=== PATIENT | female | born 1975 | race Caucasian/White ===

== ENCOUNTER 2019-05-30 12:46 | Day surgery (SDC) | payer OTHER ==
[2019-05-29 13:10] VITALS: BMI 24.8
--- NOTE | 2019-05-30 14:37 | HP ---
Admitting History and Physical - Admission Chief Complaint: Prolonged menses History of Present Illness: 43 yo Para 2 with 2 prior c-sections is pre op for endometrial ablation due to menorrhagia. History Source: Patient Limitations to Obtaining History: No Limitations - Past Medical History ...LMP: 05/07/19 ...: No ...Para: 2 - Past Surgical History Past Surgical History: Yes: - Smoking History Smoking history: Never smoked - Alcohol/Substance Use Hx Alcohol Use: No History of Substance Use: reports: None - Social History History of Recent Travel: No Home Medications - Allergies Allergies/Adverse Reactions: Allergies Allergy/AdvReac Type Severity Reaction Status Date / Time No Known Allergies Allergy Verified 05/29/19 13:05 - Home Medications Home Medications: Ambulatory Orders Amlodipine Besylate 1 tab PO DAILY 05/30/19 Losartan Potassium 1 tab PO DAILY 05/30/19 Metformin HCl [Metformin HCl ER] 1 tab PO DAILY 05/30/19 Simvastatin [Zocor -] 1 tab PO PRN 05/30/19 Review of Systems - Review of Systems Constitutional: reports: No Symptoms Eyes: reports: No Symptoms HENT: reports: No Symptoms Neck: reports: No Symptoms Cardiovascular: reports: No Symptoms Respiratory: reports: No Symptoms Gastrointestinal: reports: No Symptoms Genitourinary: reports: Vaginal Bleeding Breasts: reports: No Symptoms Reported Musculoskeletal: reports: No Symptoms Integumentary: reports: No Symptoms Neurological: reports: No Symptoms Endocrine: reports: No Symptoms Hematology/Lymphatic: reports: No Symptoms Psychiatric: reports: No Symptoms Pain Intensity: 0 Physical Examination Vital Signs: Vital Signs Temperature 98.3 F 05/30/19 13:23 Pulse Rate 93 H 05/30/19 13:23 Respiratory Rate 18 05/30/19 13:23 Blood Pressure 141/76 05/30/19 13:23 O2 Sat by Pulse Oximetry (%) 100 05/30/19 13:23 Constitutional: Yes: Well Nourished Eyes: Yes: Conjunctiva Clear HENT: Yes: Atraumatic Neck: Yes: Supple Cardiovascular: Yes: Regular Rate and Rhythm Respiratory: Yes: Regular Gastrointestinal: Yes: Normal Bowel Sounds Breast(s): Yes: WNL Musculoskeletal: Yes: WNL Extremities: Yes: WNL Neurological: Yes: Alert, Oriented ...Motor Strength: WNL Psychiatric: Yes: Alert, Oriented Problem List - Problems (1) Menorrhagia Code(s): N92.0 - EXCESSIVE AND FREQUENT MENSTRUATION WITH REGULAR CYCLE Qualifiers: Menorrahagia type: with regular cycle Qualified Code(s): N92.0 - Excessive and frequent menstruation with regular cycle Assessment/Plan Menorrhagia Pre op for endometrial ablation Consent signed Anesthesia to see patient
[2019-05-30] MEDS ORDERED: MIDAZOLAM HCL 2 MG/2 ML SINGLE DOSE VIAL ONE (14:46)
[2019-05-30] MEDS ORDERED: PROPOFOL 20 ML ONE ×2 (14:46→15:16)
[2019-05-30] MEDS ORDERED: oxyCODONE HCL 5 MG TABLET PO PRN (14:57)
[2019-05-30] MEDS ORDERED: ONDANSETRON 4 MG/2 ML VIAL IVPUSH PRN (14:57)
[2019-05-30] MEDS ORDERED: LACTATED RINGERS SOLUTION 1,000 ML IV SCH (15:00)
--- NOTE | 2019-05-30 16:06 | OP ---
Operative Note - Note: Operative Date: 05/30/19 Pre-Operative Diagnosis: Menorrhagia Operation: Hysteroscopic endometrial ablation Findings: Large submucosal fibroid Post-Operative Diagnosis: Same as Pre-op Surgeon: Isabel Vang Anesthesia: General
[2019-05-30] MEDS ORDERED: IBUPROFEN 600 MG TABLET (FP) PO ONE ×2 (16:07→17:59)
[2019-05-30] MEDS ORDERED: oxyCODONE HCL 5 MG TABLET PO ONE (16:08)
[2019-05-30] MEDS ORDERED: ONDANSETRON 4 MG/2 ML VIAL ONE (18:47)
[2019-05-30] MEDS ORDERED: ACETAMINOPHEN 325 MG TABLET (FP) PO ONE ×2 (19:00→19:12)
[2019-05-30] MEDS ORDERED: ACETAMINOPHEN 325 MG TABLET (FP) ONE (19:09)
[2019-05-30 19:30] VITALS: BP 126/79; PULSE 86; TEMP 97.9
--- NOTE | 2019-06-03 11:20 | OP ---
DATE OF OPERATION: 05/30/2019 PREOPERATIVE DIAGNOSIS: Menorrhagia. POSTOPERATIVE DIAGNOSIS: Menorrhagia. PROCEDURE: Hysteroscopic endometrial ablation. SURGEON: Isabel Vang MD ANESTHESIA: General. COMPLICATIONS: None. ESTIMATED BLOOD LOSS: Less than 5 mL. DESCRIPTION OF PROCEDURE: Patient was taken to the operating room where general anesthesia was administered. Patient was then placed in lithotomy position. She was then prepped and draped in proper sterile fashion. A weighted speculum was placed in the vagina. The anterior lip of the cervix was grasped with a single-tooth tenaculum. The ablation equipment was then activated. The cervix was sequentially dilated with Hand dilators. The hysteroscope was gently introduced in the uterine cavity as indicated by the machine. Once diagnostic hysteroscopy was completed, the cervix was sealed using 2 tenaculae on the posterior cervix and 2 wet gauzes on the posterior vagina. The endometrial ablation was initiated and the procedure continued until complete blanching of the cavity was visualized. After cool off, the instruments were removed. The patient was taken out of lithotomy position. She was taken to PACU in stable condition. ISABEL VANG M.D. ISABEL VANG M.D. [id number] MTDD
== END 2019-05-30 19:25 | disposition home or self-care (01) ==
LOC: JASU-SURG 12:46
PROVIDERS: ATTEND Obstetrics & Gynecology
PROC: 0U5B8ZZ Destruction of Endometrium, Via Natural or Artificial Opening Endoscopic (ICD-10-PCS; principal; 2019-05-30 14:30)
DX: N92.0 Excessive and frequent menstruation with regular cycle (principal); D25.9 Leiomyoma of uterus, unspecified
CPT/HCPCS: 82962; 84703; 94760